=== PATIENT | male | born 1975 | race Caucasian/White ===

== ENCOUNTER 2017-04-29 06:14 | Emergency (ER) | payer BC ==
[2017-04-29 06:26] VITALS: BP 169/107
--- NOTE | 2017-04-29 07:38 | ERNOTE ---
Lower Extremity HPI - General Lower Extremities Pain: foot: right Time Seen by Provider: 04/29/17 07:13 Source: patient Exam Limitations: no limitations - Immun/Allergies/Home Medications Immunizations: IMMUNIZATION HX Immunizations Up to Date Yes History of Influenza Vaccine No Hx Pneumococcal Vaccination No Allergies/Adverse Reactions: Allergies Allergy/AdvReac Type Severity Reaction Status Date / Time No Known Allergies Allergy Verified 04/29/17 06:26 Home Medications: HOME MEDICATIONS NK [No Home Medication] 04/29/17 [Last Taken Unknown] - History of Present Illness Narrative: Pt states he was doing a lot of work in his garage 2 days ago and at the end of the day his foot began to hurt. It improved somewhat that night and he was on his feet again yesterday. It was a little worse yesterday but tolerable, this morning he states he has trouble walking on it due to pain Occurred: other - 2 days ago Location of Incident: home Method of Injury: Reports: unknown Modifying Factors - (Improves): Reports: immobilization Subsequent Symptoms: Denies: numbness Review of Systems - Review of Systems Constitutional: Present: no symptoms reported EYE: Present: no symptoms reported ENT: Present: no symptoms reported Respiratory: Present: no symptoms reported Cardiology: Present: no symptoms reported Gastrointestinal/Abdominal: Present: no symptoms reported Genitourinary: Present: no symptoms reported Musculoskeletal: Present: See HPI. Absent: back pain Skin: Absent: rash Neurological: Absent: numbness, tingling Endocrine: Present: no symptoms reported Hematologic/Lymphatic: Present: no symptoms reported Psych: Present: no symptoms reported - Patient's Past Medical History Patient History - Medical: No pertinent hx Patient History - Cardiac/Respiratory: No pertinent hx Patient History - Cancer: No Hx of Cancer Patient History - Surgical Procedures: No surgical history Patient History - Other: None - Social History Living Situations: home Abuse History: No History of abuse Psych History: No pertinent hx Smoking Status: Never smoker Alcohol Use: heavy Drug Use: none - Immunizations Immunizations Up to Date: Yes Hx Pneumococcal Vaccination: No History of Influenza Vaccine: No Physical Exam - Physical Exam General Appearance: Present: wd/wn, alert, no apparent distress Head Exam: Present: normal inspection, no evidence of injury Neck: Present: supple, full range of motion Respiratory: Present: no respiratory distress, no accessory muscle use Peripheral Pulses: N=norm/S=strong/W=weak/B=bound/A=absent: Dorsalis-pedis (R): Normal Extremity Exam: Present: normal except - - right mixing machine tender cork rod along the lateral border of the plantar fascia into the midline of the plantar fascia from calcaneous to MT heads 3-5. Neurological Exam: Present: alert, oriented, normal mood/affect, no motor/ sensory deficits Skin Exam: Present: normal color, warm/dry Lymphatic Exam: Present: no adenopathy ED Progress - Vital Signs Vital Signs: Vital Signs 04/29/17 06:22 Temperature 36.9 C Pulse Rate 92 Respiratory 16 Rate Blood Pressure 169/107 O2 Sat by Pulse 95 Oximetry - Progress/Reassessment Chief Complaint: Foot Injury/Pain Progress Note-Subjective: 04/29/17 07:37 discussed NSAID choices with the patient including OTC and Rx. He is comfortable with ibuprofen as it works for him generally. I suggested 600- 800mg TID. Pt expressed understanding. Departure Clinical Impression: Plantar fasciitis of right foot - Departure Disposition: Home self-care Condition: Good Instructions: Plantar Fasciitis Additional Instructions: Take ibuprofen 800mg every 8 hours as needed for pain. do stretches, massage and ice as directed. See your regular doctor if not improving
== END 2017-04-29 07:32 | disposition home or self-care (01) ==
LOC: ER 06:14
DX: M72.2 Plantar fascial fibromatosis (principal)